=== PATIENT | female | born 1975 | race Caucasian/White ===

== ENCOUNTER 2025-02-04 04:27 | Emergency (ER) | payer OTHER ==
[~2025-02-04] VITALS: Ht 162.6 cm; Wt 79.4 kg
[2025-02-04 05:00] LABS: BASO # 0.1 10*3/uL (0.0-0.1); BASO % 1.0 % (0.0-1.0); EOS # 0.0 10*3/uL (0.0-0.4); EOS % 0.7 % (1.0-4.0); MEAN CELL VOLUME 88.8 fl (81.0-99.0); MEAN CORPUSCULAR HGB 29.6 pg (27.0-31.0); MEAN PLATELET VOLUME 9.2 fl (9.6-12.3); MONO # 0.4 10*3/uL (0.1-1.0); MONO % 6.2 % (3.0-9.0); NEUT # 3.7 10*3/uL (2.3-7.9); NEUT % 61.1 % (47.0-73.0); NUCLEATED RED BLOOD CELL 0.0 % (0.0-0.0); NUCLEATED RED BLOOD CELL 0.0 10*3/uL (0.0-0.0); PLATELET COUNT AUTOMATED 224 10*3/uL (130-400); RED CELL DISTRI WIDTH 12.6 % (0-14.5)
[2025-02-04] MEDS ORDERED: Ondansetron Hydrochloride 4 MG TAB SL ONE (05:00)
[2025-02-04 05:19] LABS: BUN 10 mg/dl (9-23)
[2025-02-04] MEDS ORDERED: Acetaminophen/Hydrocodone ES 7.5/325 tablet PO ONE (07:05)
== END 2025-02-04 07:28 | disposition home or self-care (01) ==
LOC: ED 04:27
PROVIDERS: Internal Medicine
DX: R07.89 Other chest pain (principal); Z86.711 Personal history of pulmonary embolism; Z88.8 Allergy status to other drugs, medicaments and biological substances

== ENCOUNTER 2025-03-20 21:48 | Emergency (ER) | payer OTHER ==
[~2025-03-20] VITALS: Ht 162.5 cm; Wt 83.0 kg
[2025-03-20 22:11] LABS: BASO # 0.0 10*3/uL (0.0-0.1); BASO % 0.5 % (0.0-1.0); EOS # 0.0 10*3/uL (0.0-0.4); EOS % 0.3 % (1.0-4.0); MEAN CELL VOLUME 88.7 fl (81.0-99.0); MEAN CORPUSCULAR HGB 29.1 pg (27.0-31.0); MEAN PLATELET VOLUME 9.1 fl (9.6-12.3); MONO # 0.4 10*3/uL (0.1-1.0); MONO % 5.7 % (3.0-9.0); NEUT # 3.9 10*3/uL (2.3-7.9); NEUT % 59.2 % (47.0-73.0); NUCLEATED RED BLOOD CELL 0.0 % (0.0-0.0); NUCLEATED RED BLOOD CELL 0.0 10*3/uL (0.0-0.0); PLATELET COUNT AUTOMATED 246 10*3/uL (130-400); RED CELL DISTRI WIDTH 12.9 % (0-14.5)
[2025-03-20 22:31] LABS: BUN 10 mg/dl (9-23); SGPT/ALT 20 U/L (5-49)
[2025-03-20 22:42] LABS: ACT PARTIAL THROMBO TIME 25.3 SECONDS (20.0-32.1)
[2025-03-21] MEDS ORDERED: Ondansetron Hydrochloride 4 MG/2 ML VIAL IV ONE (00:25)
[2025-03-21] MEDS ORDERED: HYDROmorphONE Hydrochloride 0.5 MG/0.5 ML SYRINGE IV ONE ×2 (00:25→01:10)
[2025-03-21] MEDS ORDERED: Ondansetron Hydrochloride 4 MG/2 ML VIAL ONE (01:05)
[2025-03-21] MEDS ORDERED: HYDROmorphONE Hydrochloride 0.5 MG/0.5 ML SYRINGE ONE ×2 (01:05→01:38)
== END 2025-03-21 01:12 | disposition home or self-care (01) ==
LOC: ED 21:48
PROVIDERS: Internal Medicine
DX: R07.89 Other chest pain (principal); Z88.1 Allergy status to other antibiotic agents; Z88.8 Allergy status to other drugs, medicaments and biological substances